=== PATIENT | male | born 1935 | race Caucasian/White ===

== ENCOUNTER → 2023-09-19 | Outpatient (CLI) | payer MEDICARE, OTHER ==
[~2023-09-19] MED LIST: ACET500 PO; Bactrim Ds Tab1 EACH PO; CLIN150 PO; LAMO100 PO; LOSA50 PO; ROSUVASTATIN CAL5 MG PO; TIMO10T BOTHEYES; Travatan Z5 ML BOTHEYES
== END | disposition home or self-care (01) ==
LOC: LAB SHORT 15:15 → LAB 15:15
DX: L02.415 Cutaneous abscess of right lower limb (principal)
CPT/HCPCS: 87070; 87075; 87077; 87186; 87205

== ENCOUNTER 2023-09-20 11:05 | Day surgery (SDC) | payer MEDICARE, OTHER ==
[~2023-09-20] VITALS: Ht 177.8 cm; Wt 82.9 kg
[2023-09-20] VITALS (9 sets, daily range): BP systolic 144–183; BP diastolic 82–97
[~2023-09-20 11:05] MED LIST changes: -ACET500 PO; -CLIN150 PO; -LAMO100 PO; -LOSA50 PO; -ROSUVASTATIN CAL5 MG PO; -TIMO10T BOTHEYES; -Travatan Z5 ML BOTHEYES
[2023-09-20] MEDS ORDERED: LOSA50 PO (12:30)
[2023-09-20] MEDS ORDERED: ROSUVASTATIN CAL5 MG PO (12:31)
[2023-09-20] MEDS ORDERED: LAMO100 PO (12:31)
[2023-09-20] MEDS ORDERED: CLIN150 PO (12:32)
[2023-09-20] MEDS ORDERED: TIMO10T BOTHEYES (12:33)
[2023-09-20] MEDS ORDERED: Travatan Z5 ML BOTHEYES (12:35)
[2023-09-20] MEDS ORDERED: ACET500 PO (12:36)
[2023-09-20] MEDS ORDERED: Lactated Ringer's 1,000 ML IV SCH (12:45)
[2023-09-20] MEDS ORDERED: CeFAZolin Sodium 2,000 MG in NS 100 ML IV SCH (12:45)
--- NOTE | 2023-09-20 13:09 | NUR ---
History, Chart, Medications and Allergies reviewed before start of procedure. Patient States Post-Procedure ride home has been arranged with daughter, who is at bedside. also at bedside.
[2023-09-20] MEDS ORDERED: Ondansetron HCl 2 MG / ML 2ML Vial ONE (14:40)
[2023-09-20] MEDS ORDERED: Dexamethasone Sod Phos 10 MG/ML 1ML VIAL ONE (14:40)
[2023-09-20] MEDS ORDERED: Ketorolac Tromethamine 30mg Vial ONE (14:40)
[2023-09-20] MEDS ORDERED: Bupivacaine 0.5% HCl 5 MG/ML 30MLVIAL ONE (15:14)
[2023-09-20] MEDS ORDERED: FentaNYL Citrate 50 MCG/ML 2 ML Injection ONE (15:17)
[2023-09-20] MEDS ORDERED: propofoL 20 ML IV ONE (15:17)
[2023-09-20] MEDS ORDERED: CeFAZolin Sodium 1000 mg Vial ONE ×2 (15:37→15:38)
[2023-09-20] MEDS ORDERED: Rocuronium Bromide 10 MG/ML 5ML Injection IV ONE (15:51)
[2023-09-20] MEDS ORDERED: Sugammadex Sodium 200 MG/2ML SDV (100 MG/ML) ONE (16:13)
--- NOTE | 2023-09-20 17:08 | NUR ---
PT INTO STEP FROM PACU, THIS RN CONTINUING CARE. PT AWAKE AND IN STABLE CONDITION.
[2023-09-20] MEDS ORDERED: HYDROcodone 5-APAP 325 TAB PO PRN (17:15)
--- NOTE | 2023-09-20 18:07 | NUR ---
DISCHARGE NOTE Patient up to [facility] standby w/ walker. Gait steady. Hearing aids in. Assisted pt w/ dressing. Dressing on r leg remains c/d/i, pt able to wiggle toes, cap refill <3 secs. VSS. Discharge instructions reviewed with patient. Patient verbalizes understanding. Copy given to patient to take home. Family has physical prescription for pain meds. Lungs clear T/O to Auscultation. Pt tolerating PO crackers and water, pain pill given w/ time written on outpatient medication sheet given to family. Discharged via wheelchair to private car for ride home. Pt in stable condition.
== END 2023-09-20 17:59 | disposition home or self-care (01) ==
LOC: ORSCMMR 11:05
PROVIDERS: Orthopaedic Surgery
PROC: 0QBG0ZZ Excision of Right Tibia, Open Approach (ICD-10-PCS; principal; 2023-09-20 15:00)
PROC: 0QBJ0ZZ Excision of Right Fibula, Open Approach (ICD-10-PCS; principal; 2023-09-20 15:00)
PROC: 0S9C0ZZ Drainage of Right Knee Joint, Open Approach (ICD-10-PCS; principal; 2023-09-20 15:00)
DX: L02.415 Cutaneous abscess of right lower limb (principal); M71.061 Abscess of bursa, right knee; I10 Essential (primary) hypertension; Z79.899 Other long term (current) drug therapy
CPT/HCPCS: 87070; 87075; 87205; A9270; J0690; J1100; J1885; J2405; J2704; J3010; J7120